=== PATIENT | male | born 1960 | race American Indian/Alaskan Native ===

== ENCOUNTER 2017-12-31 09:34 | Day surgery (SDC) | payer MEDICAID ==
[~2017-12-31 09:34] MED LIST: NACL 0.9% 1000 ML 1,000 ML IV SCH
[2017-12-31] MEDS ORDERED: XYLOCAINE MPF 2% ONE (10:00)
[2017-12-31] MEDS ORDERED: VERSED ONE (10:02)
[2017-12-31] MEDS ORDERED: DIPRIVAN 10 MG/ML IV ONE (10:02)
[2017-12-31] MEDS ORDERED: WATER FOR IRRIG STERILE IR ONE (10:07)
--- NOTE | 2017-12-31 10:21 | Short Stay Summary ---
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 Procedures were recommended by his primary medical provider and requested by his brother. His brother granted procedural consent. - History Principal diagnosis: anemia, weight loss H&P: obtained from office Past Medical History: other (traumatic brain injury with residual aphasia) Past Surgical History: Other (brain surgery) - Allergies and Medications Current Medications: Allergies No Known Allergies Allergy (Verified 12/28/17 09:05) Active Medications Sodium Chloride (Nacl 0.9% 1000 Ml) 1,000 mls @ 50 mls/hr IV DIRECT GARETH - Physical exam General appearance: no acute distress, other (chronically ill) HEENT: PERRLA, EOMI, Other (Poor dentition, several loose teeth movable with slight touch) Lungs: Clear to auscultation Heart: Regular rate, Normal S1, Normal S2 Gastrointestinal: other (mildly distended, soft, nontender) Rectal Exam: other (diaper contains copious thick opaque brown content) Extremities: abnormal (flexion contractures) Neurological: Other (aphasic, unable to assess orientation or level of comprehension) - Discharge Diagnoses (1) Anemia Status: Acute Comment: Unfortunately severely loose teeth pose undue risk for dislodgement and aspiration, thererfore EGD cancelled. Still passing copious opaque brown semiliquid stool, therefore colonoscopy cancelled due to inadequate prep. All the above explained to his son who expressed a good understanding. (2) Weight loss Status: Acute Short Stay Discharge Plan Diet: other (may resume usual diet) Additional Instructions: 1. Arrange proper dental care to extract nonviable teeth and salvage any others. EGD will be possible once this has been accomplished. 2. Once dental issues have been resolved, contact our office to re-schedule EGD/ colonoscopy. Patient will require enhanced prep. This has been discussed with patient's brother Janusz Amaya, and will be communicated to his skilled nursing. Follow up with: RUTHIE RODRIGUEZ MD [Primary Care Provider] - 7 Days
--- NOTE | 2017-12-31 10:22 | Anesthesia Day of Surgery ---
Anesthesia Day of Surgery - Day of Surgery Patient Examined: Yes Patient H&P Reviewed: Yes Patient is NPO: Yes Beta Blockers: No
--- NOTE | 2017-12-31 10:23 | Anesthesia Consultation ---
Anesthesia Consult and Med Hx - Airway Anesthetic Teeth Evaluation: Good ROM Head & Neck: Adequate Mental/Hyoid Distance: Adequate Mallampati Class: Class III Intubation Access Assessment: Probably Good - Pulmonary Exam CTA: Yes - Cardiac Exam Cardiac Exam: No Murmur - Pre-Operative Health Status ASA Pre-Surgery Classification: ASA3 Proposed Anesthetic Plan: MAC - Pulmonary Hx Smoking: No Hx Asthma: No Hx Respiratory Symptoms: No COPD: No Home Oxygen Therapy: No Hx Pneumonia: No Hx Sleep Apnea: No - Cardiovascular System Hx Hypertension: Yes - Central Nervous System CVA: Yes
[2017-12-31 11:03] VITALS: BP 102/67
== END 2017-12-31 09:35 | disposition home or self-care (01) ==
LOC: GIO 09:34
PROVIDERS: ATTEND Internal Medicine Gastroenterology
DX: D64.9 Anemia, unspecified (principal); R63.4 Abnormal weight loss; I10 Essential (primary) hypertension; F41.9 Anxiety disorder, unspecified; F32.9 Major depressive disorder, single episode, unspecified; Z86.73 Personal history of transient ischemic attack (TIA), and cerebral infarction without residual deficits; Z87.891 Personal history of nicotine dependence; Z53.8 Procedure and treatment not carried out for other reasons
CPT/HCPCS: J2250; J2704; J7030